=== PATIENT | male | born 1935 | race Caucasian/White ===

== ENCOUNTER 2019-07-02 13:24 | Outpatient (REF) | payer MEDICARE, SELFPAY ==
[2019-07-02 20:19] LABS: Bilirubin Negative (Negative); Blood Small (Negative); Clarity Cloudy (Clear); Glucose Negative (Negative); Ketones Negative (Negative); Leukocyte Esterase Negative (Negative); Nitrite Negative (Negative); Urobilinogen 0.2 EU/dL (Up TO 0.2)
== END 2019-07-02 13:44 ==
LOC: NCHCN 13:24
PROVIDERS: PCP Nurse Practitioner Family; Visit Provider Physician Assistant Medical
DX: R31.9 Hematuria, unspecified (principal)
CPT/HCPCS: 81003; 81015

== ENCOUNTER 2019-08-07 17:47 | Outpatient (REF) | payer MEDICARE, SELFPAY ==
[2019-08-07 22:11] LABS: HCT 36.6 % (40.0-50.0); HGB 12.6 g/dL (13.5-17.5); Mean Corp. HGB Concentration 34.4 g/dL (32.0-36.0); Mean Corpuscular Volume 89.9 fL (80-95); Mean Platelet Volume 11.8 fL (8.0-11.0); Platelet Count 160 x1000/uL (130-400); RBC 4.07 m/cumm (4.50-6.00); RBC Distribution Width 12.2 % (11.8-14.1); White Blood Cell Count 5.81 k/cumm (4.4-10.8)
[2019-08-07 22:25] LABS: ALT 14 U/L (16-63); AST 15 U/L (15-37); Albumin 3.5 g/dL (3.4-5.0); Alkaline Phosphatase 65 U/L (46-116); Anion Gap 9.9 mmol/L (3-11); BUN 34 mg/dL (7-18); Bilirubin, Total 0.4 mg/dL (0.2-1.0); CO2 25.1 mmol/L (21.0-32.0); CREATININE 2.09 mg/dL (0.70-1.30); Calcium 8.7 mg/dL (8.5-10.1); Chloride 107 mmol/L (98-107); Estimated GFR 30.48 (mL/min/1.73m2); Glucose 158 mg/dL (74-106); Potassium 4.8 mmol/L (3.5-5.1); Sodium 142 mmol/L (136-145); Total Protein 6.8 g/dL (6.4-8.2)
[2019-08-07 23:12] LABS: ESR 30 mm/hr (1-20)
== END 2019-08-07 18:07 ==
LOC: NCHCN 17:47
PROVIDERS: PCP Nurse Practitioner Family; Visit Provider Family Medicine
DX: I10 Essential (primary) hypertension (principal); R51 Headache; D64.9 Anemia, unspecified; N18.3 Chronic kidney disease, stage 3 (moderate)
CPT/HCPCS: 80053; 85027; 85652; 84443

== ENCOUNTER 2020-05-04 00:54 | Outpatient (CLI) | payer OTHER, SELFPAY ==
--- NOTE | 2020-05-04 09:56 | DI.US_ITS ---
EXAM: [facility] CLINICAL HISTORY: ABDOMINAL AORTIC ANEURYSM, [id number] COMPARISON: No exams were available for comparison FINDINGS: Abdominal Aorta: Proximal: 2.8 x 2.7 cm Mid: 2.0 x 2.3 cm Distal: 1.8 x 2.3 cm Iliac's: Right: 1.7 x 1.5 cm Left: 1.4 x 1.7 cm Mild atherosclerotic disease is seen. IMPRESSION: No evidence of abdominal aortic aneurysm. DATA REPOSITORY:
== END 2020-05-04 01:14 ==
PROVIDERS: PCP Nurse Practitioner Family; Visit Provider Nurse Practitioner Primary Care
DX: I71.4 Abdominal aortic aneurysm, without rupture (principal)
CPT/HCPCS: 76775

== ENCOUNTER 2021-03-18 12:02 | Outpatient (REF) | payer OTHER, SELFPAY ==
[2021-03-18 16:13] LABS: Abs Immature Grans 0.07 10^3/uL (0.0-0.06); Absolute Basophil Count 0.01 10^3/uL (0.0-0.2); Absolute Eosinophil Count 0.07 10^3/uL (0.0-0.7); Absolute Lymphocyte Count 0.53 10^3/uL (1.2-3.4); Absolute Monocyte Count 0.41 10^3/uL (0.1-0.8); Absolute Neutrophil Count 7.93 10^3/uL (1.2-6.7); Basophils % 0.1; ESR 34 mm/hr (0-20); Eosinophils % 0.8; HCT 33.4 % (40.0-50.0); HGB 10.9 g/dL (13.5-17.5); Immature Grans % 0.8; Lymphocytes % 5.9; MCH 30.7 pg (27.0-33.0); MCHC 32.6 % (32.0-36.0); MCV 94.1 fL (80-95); MPV 11.4 fL (8.0-11.0); Monocytes % 4.5; Neutrophils % 87.9; Nucleated RBC 0 %; Platelet Count 136 10^3/uL (130-400); RBC 3.55 10^6/uL (4.36-5.78); RDW 14.9 % (11.8-14.1); RDW-SD 51.4 fL; WBC 9.02 10^3/uL (4.4-10.8)
[2021-03-18 16:17] LABS: Anion Gap 14.1 mmol/L (3-11); BUN 63 mg/dL (7-18); C-Reactive Protein 0.38 mg/dL (0.0-0.3); CO2 21.9 mmol/L (21.0-32.0); CREATININE 3.2 mg/dL (0.70-1.30); Calcium 8.6 mg/dL (8.5-10.1); Chloride 103 mmol/L (98-107); Estimated GFR 18.55 (mL/min/1.73m2); Glucose 196 mg/dL (74-106); Potassium 3.9 mmol/L (3.5-5.1); Sodium 139 mmol/L (136-145); Uric Acid 7.1 mg/dL (3.5-7.2)
== END 2021-03-18 12:03 | disposition home or self-care (01) ==
LOC: LBN 12:02
PROVIDERS: PCP Nurse Practitioner Family; Visit Provider Family Medicine
DX: I25.10 Atherosclerotic heart disease of native coronary artery without angina pectoris (principal); R60.0 Localized edema; N18.9 Chronic kidney disease, unspecified
CPT/HCPCS: 80048; 85652; 84550; 85025; 86140

== ENCOUNTER 2021-03-21 14:09 | Outpatient (CLI) | payer OTHER, SELFPAY ==
--- NOTE | 2021-03-21 | DI.US_ITS ---
Exam(s) US LOWER EXTREMITY VENOUS RT EXAM: US LOWER EXTREMITY VENOUS RT CLINICAL HISTORY: RT LEG EDEMA, PAIN, R60.9, ? DVT,VA AUTH#[id number] TECHNIQUE: Grayscale, color, and doppler imaging of the deep venous system of the right lower extrem ity was performed. COMPARISON: US [facility] DI[facility] from 05/04/2020 FINDINGS: There is no evidence of intraluminal thrombus and there is normal compression and augmentation demons trated within the common femoral vein, femoral vein, and popliteal vein. In the ipsilateral calf the interrogated veins also exhibit normal compression/ augmentation properti es. The ipsilateral saphenofemoral junction is patent. IMPRESSION: 1. No evidence of DVT in the right lower extremity. 2. DATA REPOSITORY:
== END 2021-03-21 14:29 ==
PROVIDERS: PCP Nurse Practitioner Family; Visit Provider Family Medicine
DX: M79.661 Pain in right lower leg (principal); R60.0 Localized edema
CPT/HCPCS: 93971

== ENCOUNTER 2021-03-23 15:58 | Outpatient (REF) | payer OTHER, SELFPAY ==
[2021-03-23 16:38] LABS: Absolute Basophil Count 0.01 10^3/uL (0.0-0.2); Absolute Eosinophil Count 0.01 10^3/uL (0.0-0.7); Absolute Lymphocyte Count 0.26 10^3/uL (1.2-3.4); Absolute Monocyte Count 0.36 10^3/uL (0.1-0.8); Basophils % 0.1; Eosinophils % 0.1; HCT 32.4 % (40.0-50.0); HGB 10.8 g/dL (13.5-17.5); Immature Grans % 1.1; Lymphocytes % 2.8; MCH 30.7 pg (27.0-33.0); MCHC 33.3 % (32.0-36.0); MPV 11.2 fL (8.0-11.0); Monocytes % 3.8; Neutrophils % 92.1; Nucleated RBC 0 %; Platelet Count 115 10^3/uL (130-400); RBC 3.52 10^6/uL (4.36-5.78); RDW 14.7 % (11.8-14.1); WBC 9.44 10^3/uL (4.4-10.8)
[2021-03-23 16:40] LABS: ESR 35 mm/hr (0-20)
[2021-03-23 16:49] LABS: Anion Gap 9.2 mmol/L (3-11); BUN 53 mg/dL (7-18); C-Reactive Protein 0.19 mg/dL (0.0-0.3); CO2 23.8 mmol/L (21.0-32.0); CREATININE 2.8 mg/dL (0.70-1.30); Calcium 8.5 mg/dL (8.5-10.1); Chloride 102 mmol/L (98-107); Estimated GFR 21.64 (mL/min/1.73m2); Glucose 264 mg/dL (74-106); Potassium 4.6 mmol/L (3.5-5.1); Sodium 135 mmol/L (136-145)
[2021-03-23 16:59] LABS: NT-proBNP 1867 pg/mL (<300)
== END 2021-03-23 15:59 | disposition home or self-care (01) ==
LOC: LBN 15:58
PROVIDERS: Nurse Practitioner Family; PCP Nurse Practitioner Family; Visit Provider Family Medicine
DX: I50.9 Heart failure, unspecified (principal); R06.02 Shortness of breath; I48.91 Unspecified atrial fibrillation; M79.661 Pain in right lower leg; R60.0 Localized edema
CPT/HCPCS: 80048; 85652; 83880; 85025; 86140

== ENCOUNTER 2021-03-28 05:13 | Outpatient (REF) | payer OTHER, SELFPAY | END 2021-03-28 05:14 | disposition home or self-care (01) | LOC: LBN 05:13 | PROVIDERS: PCP Nurse Practitioner Family; Visit Provider Family Medicine | DX: I48.0 Paroxysmal atrial fibrillation (principal); I25.10 Atherosclerotic heart disease of native coronary artery without angina pectoris | CPT/HCPCS: 83036 ==

== ENCOUNTER 2021-11-29 15:21 | Outpatient (REF) | payer OTHER, SELFPAY ==
[2021-11-29 19:55] LABS: HCT 36.6 % (40.0-50.0); MCH 30.2 pg (27.0-33.0); MCHC 32.8 % (32.0-36.0); MCV 92.2 fL (80-95); MPV 11.9 fL (8.0-11.0); Platelet Count 170 10^3/uL (130-400); RBC 3.97 10^6/uL (4.36-5.78); RDW 13.7 % (11.8-14.1); RDW-SD 46.5 fL; WBC 6.98 10^3/uL (4.4-10.8)
[2021-11-29 20:10] LABS: Hemoglobin A1C 7.2 % (<5.7)
[2021-11-29 20:20] LABS: ALT 8 U/L (16-63); AST 10 U/L (15-37); Albumin 3.5 g/dL (3.4-5.0); Alkaline Phosphatase 74 U/L (46-116); Anion Gap 12.2 mmol/L (3-11); BUN 42 mg/dL (7-18); Bilirubin, Total 0.5 mg/dL (0.2-1.0); CO2 23.8 mmol/L (21.0-32.0); CREATININE 3.5 mg/dL (0.70-1.30); Calcium 8.9 mg/dL (8.5-10.1); Chloride 105 mmol/L (98-107); Estimated GFR 16.73 (mL/min/1.73m2); Glucose 184 mg/dL (74-106); Potassium 3.9 mmol/L (3.5-5.1); Sodium 141 mmol/L (136-145); TSH (W/Ref FT4) 2.92 uIU/mL (0.36-3.74); Total Protein 6.7 g/dL (6.4-8.2)
[2021-11-29 20:39] LABS: ESR 30 mm/hr (0-20)
[2021-12-01 14:08] LABS: Vitamin D 25 Total 57.8 ng/mL (30-100)
== END 2021-11-29 15:22 | disposition home or self-care (01) ==
LOC: NCHCN 15:21
PROVIDERS: PCP Nurse Practitioner Family; Visit Provider Nurse Practitioner Family
DX: E11.9 Type 2 diabetes mellitus without complications (principal); M54.59 Other low back pain
CPT/HCPCS: 80053; 82306; 85027; 85652; 83036; 84443

== ENCOUNTER 2021-12-02 14:34 | Outpatient (REF) | payer OTHER, SELFPAY ==
[2021-12-02 20:03] LABS: Anion Gap 11.8 mmol/L (3-11); BUN 49 mg/dL (7-18); CO2 24.2 mmol/L (21.0-32.0); CREATININE 3.5 mg/dL (0.70-1.30); Calcium 9.1 mg/dL (8.5-10.1); Chloride 102 mmol/L (98-107); Estimated GFR 16.73 (mL/min/1.73m2); Glucose 235 mg/dL (74-106); Potassium 3.9 mmol/L (3.5-5.1); Sodium 138 mmol/L (136-145)
== END 2021-12-02 14:35 | disposition home or self-care (01) ==
LOC: NCHCN 14:34
PROVIDERS: PCP Nurse Practitioner Family; Visit Provider Nurse Practitioner Family
DX: E11.9 Type 2 diabetes mellitus without complications (principal); I10 Essential (primary) hypertension
CPT/HCPCS: 80048

== ENCOUNTER 2022-03-14 16:07 | Outpatient (REF) | payer OTHER, SELFPAY ==
[2022-03-14 20:30] LABS: Anion Gap 9.4 mmol/L (3-11); BUN 43 mg/dL (7-18); CO2 22.6 mmol/L (21.0-32.0); Chloride 106 mmol/L (98-107); Creatine Kinase 67 U/L (39-308); Estimated GFR 15.65 (mL/min/1.73m2); Glucose 181 mg/dL (74-106); Potassium 4.2 mmol/L (3.5-5.1); Sodium 138 mmol/L (136-145); Uric Acid 7.2 mg/dL (3.5-7.2)
[2022-03-14 20:44] LABS: CREATININE 3.7 mg/dL (0.70-1.30)
[2022-03-14 21:01] LABS: HDL Cholesterol 36 mg/dL (40-60); LDL CHOLESTEROL 85 mg/dL (<100)
== END 2022-03-14 16:08 | disposition home or self-care (01) ==
LOC: NCHCN 16:07
PROVIDERS: PCP Nurse Practitioner Family; Visit Provider Nurse Practitioner Family
DX: E11.9 Type 2 diabetes mellitus without complications (principal); N18.4 Chronic kidney disease, stage 4 (severe); E78.5 Hyperlipidemia, unspecified
CPT/HCPCS: 80048; 82550; 83721; 83718; 84550

== ENCOUNTER 2022-09-18 15:01 | Outpatient (REF) | payer OTHER, SELFPAY ==
[2022-09-18 16:13] LABS: Abs Immature Grans 0.01 10^3/uL (0.0-0.06); Absolute Basophil Count 0.08 10^3/uL (0.0-0.2); Absolute Eosinophil Count 0.48 10^3/uL (0.0-0.7); Absolute Lymphocyte Count 1.01 10^3/uL (1.2-3.4); Absolute Monocyte Count 0.56 10^3/uL (0.1-0.8); Absolute Neutrophil Count 4.52 10^3/uL (1.2-6.7); Basophils % 1.2; Eosinophils % 7.2; HCT 35.6 % (40.0-50.0); HGB 12.1 g/dL (13.5-17.5); Immature Grans % 0.2; Lymphocytes % 15.2; MCH 31.5 pg (27.0-33.0); MCV 93 fL (80-95); MPV 11.4 fL (8.0-11.0); Monocytes % 8.4; Neutrophils % 67.8; Platelet Count 161 10^3/uL (130-400); RBC 3.84 10^6/uL (4.36-5.78); RDW 13.2 % (11.8-14.1); RDW-SD 44.8 fL; WBC 6.66 10^3/uL (4.4-10.8)
[2022-09-18 16:30] LABS: Anion Gap 7.7 mmol/L (3-11); BUN 28 mg/dL (7-18); CO2 26.3 mmol/L (21.0-32.0); CREATININE 2.9 mg/dL (0.70-1.30); Calcium 8.8 mg/dL (8.5-10.1); Chloride 105 mmol/L (98-107); Estimated GFR 20.43 (mL/min/1.73m2); Glucose 180 mg/dL (74-106); Potassium 4.3 mmol/L (3.5-5.1); Sodium 139 mmol/L (136-145)
== END 2022-09-18 15:02 | disposition home or self-care (01) ==
LOC: NCHCN 15:01
PROVIDERS: PCP Nurse Practitioner Family; Visit Provider Nurse Practitioner Family
DX: Z01.818 Encounter for other preprocedural examination (principal)
CPT/HCPCS: 80048; 85025

== ENCOUNTER 2022-11-13 19:31 | Outpatient (REF) | payer OTHER, SELFPAY ==
[2022-11-13 19:19] LABS: ESR 17 mm/hr (0-20)
[2022-11-13 19:33] LABS: Hemoglobin A1C 6.3 % (<5.7)
[2022-11-13 20:11] LABS: ALT 10 U/L (16-63); AST 14 U/L (15-37); Albumin 3.5 g/dL (3.4-5.0); Alkaline Phosphatase 78 U/L (46-116); Anion Gap 7.9 mmol/L (3-11); BUN 33 mg/dL (7-18); Bilirubin, Total 0.7 mg/dL (0.2-1.0); CO2 28.1 mmol/L (21.0-32.0); CREATININE 2.8 mg/dL (0.70-1.30); Chloride 104 mmol/L (98-107); Estimated GFR 21.31 (mL/min/1.73m2); Glucose 167 mg/dL (74-106); Potassium 4.9 mmol/L (3.5-5.1); Sodium 140 mmol/L (136-145); TSH (W/Ref FT4) 1.99 uIU/mL (0.36-3.74); Total Protein 6.9 g/dL (6.4-8.2); Vitamin B12 342 pg/mL (193-986)
[2022-11-13 20:34] LABS: Creatine Kinase 56 U/L (39-308)
[2022-11-17 09:35] LABS: Methylmalonic Acid 0.71 nmol/mL (<=0.40)
== END 2022-11-13 19:32 | disposition home or self-care (01) ==
LOC: NCHCN 19:31
PROVIDERS: PCP Nurse Practitioner Family; Visit Provider Family Medicine
DX: M54.59 Other low back pain (principal); M45.9 Ankylosing spondylitis of unspecified sites in spine; E11.9 Type 2 diabetes mellitus without complications; E78.5 Hyperlipidemia, unspecified; N18.4 Chronic kidney disease, stage 4 (severe); I10 Essential (primary) hypertension; Z79.899 Other long term (current) drug therapy
CPT/HCPCS: 80053; 80186; 82550; 85652; 82607; 83036; 84443

== ENCOUNTER 2022-12-13 15:35 | Outpatient (REF) | payer OTHER, SELFPAY ==
[2022-12-18 08:17] LABS: HLA-B27 Result Negative
== END 2022-12-13 15:36 | disposition home or self-care (01) ==
LOC: NCHCN 15:35
PROVIDERS: PCP Nurse Practitioner Family; Visit Provider Nurse Practitioner Family
DX: M47.9 Spondylosis, unspecified (principal)
CPT/HCPCS: 86812